=== PATIENT | female | born 2000 | race Caucasian/White ===

== ENCOUNTER 2022-01-27 10:48 | Emergency (ER) | payer OTHER ==
[~2022-01-27] VITALS: Ht 160 cm; Wt 54.9 kg
[2022-01-27 10:52] VITALS: BP 116/74
[2022-01-27 12:44] VITALS: BP 116/74
--- NOTE | 2022-01-27 12:44 | NUR ---
NO NURSING INTERVENTIONS PROVIDED
--- NOTE | 2022-01-27 12:45 | NUR ---
Patient discharged with v/s stable. Written and verbal after care instructions ABOUT FINGER SPRAIN given and explained. Patient verbalized understanding. Ambulatory with steady gait. All questions addressed prior to discharge. Advised to follow up with PMD.
== END 2022-01-27 12:44 | disposition home or self-care (01) ==
LOC: MED 10:48
DX: S63.617A Unspecified sprain of left little finger, initial encounter (principal); V87.8XXA Person injured in other specified noncollision transport accidents involving motor vehicle (traffic), initial encounter; Y93.89 Activity, other specified; Y92.89 Other specified places as the place of occurrence of the external cause; Y99.8 Other external cause status
CPT/HCPCS: 73140; 99283